=== PATIENT | male | born 1970 | race African-American/Black ===

== ENCOUNTER 2017-09-25 13:36 | Emergency (ER) | payer OTHER ==
[2017-09-25] MEDS ORDERED: Mineral Oil ENEMA ONE (14:00)
== END 2017-09-25 14:25 | disposition home or self-care (01) ==
LOC: NAV ERS 13:36
DX: K59.00 Constipation, unspecified (principal); Z87.891 Personal history of nicotine dependence; Z79.891 Long term (current) use of opiate analgesic; Z79.82 Long term (current) use of aspirin; Z79.899 Other long term (current) drug therapy
CPT/HCPCS: 99283

== ENCOUNTER 2018-03-07 14:39 | Outpatient (CLI) | payer OTHER ==
[2018-03-07 15:02] LABS: #Basophils 0.1 thou/uL (0.0-0.2); #Eosinphils 0.3 thou/uL (0.0-0.7); #Lymphocytes 2.4 thou/uL (1.20-3.40); #Monocytes 0.3 thou/uL (0.11-0.59); #Neutrophils 1.9 thou/uL (1.40-6.50); %Basophils 1.4 % (0.0-1.0); %Eosinophils 5.4 % (0.0-10.0); %Monocytes 6.3 % (0.0-10.0); Hemoglobin 12.8 g/dL (14.0-18.0); Mean Corpuscular HGB CONC 31.1 g/dL (32.0-36.0); Mean Corpuscular Volume 86.9 fl (80.0-94.0); Mean Platelet Volume 6.9 fL (7.4-10.4); Platelet Count 356 thou/uL (130-400); RBC Distribution Width 15.1 % (11.5-14.5); Red Blood Cell (RBC) Count 4.74 mill/uL (4.70-6.10)
[2018-03-07 15:05] LABS: Vancomycin, Trough 19.3 ug/mL
[2018-03-07 15:07] LABS: ALT (SGPT) 31 U/L (8-55); AST (SGOT) 18 U/L (5-34); Albumin 4.3 g/dL (3.5-5.0); Alkaline Phosphatase 84 U/L (40-150); Anion Gap 14 mmol/L (10-20); BUN (Urea Nitrogen) 8 mg/dL (8.9-20.6); Bilirubin, Total 0.3 mg/dL (0.2-1.2); Calc. Creatinine Clearance 0 mL/min (70-130); Calcium 9.5 mg/dL (7.8-10.44); Carbon Dioxide 25 mmol/L (22-29); Chloride 105 mmol/L (98-107); Estimated GFR-MDRD Greater than 90; Globulin 3.3 g/dL (2.4-3.5); Glucose 89 mg/dL (70-105); Protein, Total 7.6 g/dL (6.0-8.3); Sodium 140 mmol/L (136-145)
[2018-03-07 20:21] LABS: CRP (Inflammatory) Less than 0.50 mg/dL (= or < 0.5)
== END 2018-03-07 14:40 | disposition home or self-care (01) ==
LOC: NAV LABSP 14:39
PROVIDERS: ATTEND Internal Medicine
DX: S82.871A Displaced pilon fracture of right tibia, initial encounter for closed fracture (principal); S82.042A Displaced comminuted fracture of left patella, initial encounter for closed fracture
CPT/HCPCS: 80053; 80202; 85025; 85652; 86140

== ENCOUNTER 2018-03-14 10:25 | Outpatient (CLI) | payer OTHER ==
[2018-03-14 13:07] LABS: ALT (SGPT) 41 U/L (8-55); AST (SGOT) 24 U/L (5-34); Albumin 4.3 g/dL (3.5-5.0); Alkaline Phosphatase 87 U/L (40-150); Anion Gap 15 mmol/L (10-20); BUN (Urea Nitrogen) 8 mg/dL (8.9-20.6); Bilirubin, Total 0.3 mg/dL (0.2-1.2); Calc. Creatinine Clearance 0 mL/min (70-130); Calcium 9.7 mg/dL (7.8-10.44); Carbon Dioxide 24 mmol/L (22-29); Chloride 103 mmol/L (98-107); Estimated GFR-MDRD Greater than 90; Globulin 3.4 g/dL (2.4-3.5); Glucose 99 mg/dL (70-105); Potassium 4.2 mmol/L (3.5-5.1); Protein, Total 7.7 g/dL (6.0-8.3); Sodium 138 mmol/L (136-145); Vancomycin, Trough 10.8 ug/mL
[2018-03-14 13:26] LABS: Eosinophils 3 % (0-10); Hemoglobin 13.4 g/dL (14.0-18.0); Lymphocytes 42 % (21-51); MDiff Complete? YES; Mean Corpuscular HGB CONC 31.3 g/dL (32.0-36.0); Mean Corpuscular Volume 86.4 fl (80.0-94.0); Monocytes 15 % (0-10); Neutrophil 40 % (42-75); PLT Morphology Comment Appears Adequate; Platelet Count 287 thou/uL (130-400); RBC Distribution Width 14.7 % (11.5-14.5); Red Blood Cell (RBC) Count 4.95 mill/uL (4.70-6.10); White Blood Cell (WBC) Count 3.4 thou/uL (4.8-10.8)
[2018-03-14 18:04] LABS: CRP (Inflammatory) Less than 0.50 mg/dL (= or < 0.5)
[2018-03-14 22:28] LABS: Follow-up Result - Hematology REPORT FAXED
[2018-03-14 22:29] LABS: Follow-up Result - Chemistry REPORT FAXED
[2018-03-14 22:51] LABS: Follow-up Chemistry Comp? YES; Follow-up Hematology Comp? YES
== END 2018-03-14 10:26 | disposition home or self-care (01) ==
LOC: NAV LABSP 10:25
PROVIDERS: ATTEND Internal Medicine
DX: S82.042A Displaced comminuted fracture of left patella, initial encounter for closed fracture (principal); S82.871A Displaced pilon fracture of right tibia, initial encounter for closed fracture
CPT/HCPCS: 80053; 80202; 85025; 85652; 86140

== ENCOUNTER 2021-10-12 02:19 | Emergency (ER) | payer MEDICARE ==
[2021-10-12] MEDS ORDERED: EPINEPHrine 1 MG/ML AMP ONE (02:54)
[2021-10-12] MEDS ORDERED: Dextrose 50% Abboject 50 ML SYRINGE ONE (02:55)
[2021-10-12] MEDS ORDERED: Enoxaparin Sodium 120 MG/0.8 ML SYRINGE SC ONE (02:55)
[2021-10-12] MEDS ORDERED: Calcium Chloride 1 GM/10 ML Abboject SYRINGE ONE (09:00)
[2021-10-12] MEDS ORDERED: EPINEPHrine 1 MG/10 ML Abboject SYRINGE ONE (09:00)
[2021-10-12] MEDS ORDERED: Sodium Bicarb 50 MEQ/50 ML Abboject 8.4% SYRINGE ONE (09:00)
[2021-10-12] MEDS ORDERED: Rocuronium Bromide 10 MG/ML (10ML VIAL) ONE (09:00)
[2021-10-12] MEDS ORDERED: Succinylcholine 200 MG/10 ml SYRINGE FS ONE (09:00)
[2021-10-12 22:29] LABS: SARS-CoV-2 PCR by NAA DETECTED (NotDetected)
== END 2021-10-12 06:04 | disposition expired ==
LOC: NAV ERS 02:19
DX: U07.1 COVID-19 (principal); I46.9 Cardiac arrest, cause unspecified
CPT/HCPCS: 31500; 93005; 94760; U0003; U0005; 36680; 92950; J0171; J1650